=== PATIENT | male | born 1955 | race Caucasian/White ===

== ENCOUNTER 2019-01-06 02:29 | Emergency (ER) | payer BC ==
[2019-01-06] MEDS ORDERED: Clopidogrel 75 MG Tab PO ONE (02:49)
[2019-01-06] MEDS ORDERED: Aspirin 81 MG Tab.Chew PO ONE (02:49)
[2019-01-06] MEDS ORDERED: Heparin Sodium 5,000 UNITS/0.5 ML Syringe IVPUSH ONE (02:50)
[2019-01-06] MEDS: Sodium Chloride 0.9% 1,000 ML IV ONE ×2 (02:54→03:27)
[2019-01-06] MEDS ORDERED: Tenecteplase 50 MG Kit IV SCH (03:00)
--- NOTE | 2019-01-06 03:17 | EDM.PDOC ---
ED HPI GENERAL MEDICAL PROBLEM - General Chief Complaint: Chest Pain Stated Complaint: chest pain Time Seen by Provider: 01/06/19 02:45 Source of Information: Reports: Patient, EMS, EMS Notes Reviewed History Limitations: Reports: No Limitations - History of Present Illness INITIAL COMMENTS - FREE TEXT/NARRATIVE: This is a 63yo M brought in by EMS with chest pain, diaphoresis and shortness of breath. Patient states he last ate at 9pm but threw up and had diarrhea at midnight and then started having diaphoresis, chest pain and shortness of breath around 1 am. The pain continued at 5/10 with pressure. EMS sent his EKG showing ST elevation of leads V2-5. Patient did receive 2 nitro in the Rig and 4 aspirins prior to arrival. His BP did lower and was started on fluids. He has continued pain when arriving to the ER at 5/10. He is 95% oxygen Room air and then placed on 2L. Onset: Sudden Duration: Hour(s):, Constant, Heavy Location: Reports: Chest Quality: Reports: Ache, Throbbing Severity: Moderate Improves with: Reports: None Worsens with: Reports: None Associated Symptoms: Reports: Chest Pain, Diaphoresis, Loss of Appetite, Nausea/ Vomiting, Shortness of Breath Treatments [employer]: Reports: Aspirin, Nitroglycerin - Related Data Allergies Allergy/AdvReac Type Severity Reaction Status Date / Time No Known Allergies Allergy Verified 01/06/19 02:48 ED ROS GENERAL - Review of Systems Review Of Systems: ROS reveals no pertinent complaints other than HPI. 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) Ears: Normal External Exam Nose: Normal Inspection Throat/Mouth: Normal Inspection Head: Atraumatic, Normocephalic Neck: Normal Inspection, Supple, Non-Tender Respiratory/Chest: Lungs Clear, Normal Breath Sounds Cardiovascular: Normal Peripheral Pulses, Regular Rate, Rhythm, No Edema, No Gallop Peripheral Pulses: 2+: Dorsalis Pedis (L), Dorsalis Pedis (R) GI/Abdominal: Normal Bowel Sounds, Soft, Non-Tender Back Exam: Normal Inspection Extremities: Normal Inspection Neurological: Alert, Oriented, CN II-XII Intact Psychiatric: Normal Affect, Normal Mood Skin Exam: Warm, Dry, Intact Course - Orders/Labs/Meds Orders: Active Orders 24 hr Category Date Time Status EKG Documentation Completion [RC] ASDIRECTED Care 01/06/19 02:40 Ordered B-TYPE NATRIURETIC PEPTIDE,BNP [CHEM] Stat Lab 01/06/19 02:39 Ordered CBC WITH AUTO DIFF [HEME] Stat Lab 01/06/19 02:39 Ordered COMPREHENSIVE METABOLIC PN,CMP [CHEM] Stat Lab 01/06/19 02:39 Ordered TROPONIN I [CHEM] Stat Lab 01/06/19 02:39 Ordered Tenecteplase [Tnkase] Med 01/06/19 03:00 Ordered See Protocol IV ASDIRECTED EKG 12 Lead [EK] Routine Ther 01/06/19 02:39 Ordered Medication Orders Tenecteplase (Tnkase) 0 mg IV ASDIRECTED ELIEL; Protocol Meds: Medications Generic Name Dose Route Start Last Admin Trade Name Freq PRN Reason Stop Dose Admin Tenecteplase 0 mg 01/06/19 03:00 Tnkase IV ASDIRECTED ELIEL Protocol Discontinued Medications Generic Name Dose Route Start Last Admin Trade Name Freq PRN Reason Stop Dose Admin Aspirin 324 mg 01/06/19 02:49 01/06/19 02:52 Aspirin PO 01/06/19 02:50 324 mg ONETIME ONE Administration Clopidogrel Bisulfate 600 mg 01/06/19 02:49 01/06/19 02:52 Plavix PO 01/06/19 02:50 600 mg ONETIME ONE Administration Heparin Sodium (Porcine) 4,000 units 01/06/19 02:50 01/06/19 02:52 Heparin Sodium IVPUSH 01/06/19 02:51 4,000 units ONETIME ONE Administration Morphine Sulfate 2 mg 01/06/19 03:19 Morphine IVPUSH 01/06/19 03:20 ONETIME ONE Simvastatin 80 mg 01/06/19 02:52 Zocor PO 01/06/19 02:53 BEDTIME ONE Departure - Departure Time of Disposition: 03:30 Disposition: DC/Tfer to Acute Hospital 02 Reason for Transfer *Q: Primary PCI Indicated Condition: Undetermined Clinical Impression: STEMI (ST elevation myocardial infarction) Qualifiers: Involved coronary artery: other anterior wall coronary artery Qualified Code(s) : I21.09 - ST elevation (STEMI) myocardial infarction involving other coronary artery of anterior wall Forms: ED Department Discharge - Problem List Review Problem List Initiated/Reviewed/Updated: Yes - My Orders Last 24 Hours: My Active Orders 01/06/19 02:39 B-TYPE NATRIURETIC PEPTIDE,BNP [CHEM] Stat CBC WITH AUTO DIFF [HEME] Stat COMPREHENSIVE METABOLIC PN,CMP [CHEM] Stat TROPONIN I [CHEM] Stat EKG 12 Lead [EK] Routine 01/06/19 02:40 EKG Documentation Completion [RC] ASDIRECTED 01/06/19 03:00 Tenecteplase [Tnkase] See Protocol IV ASDIRECTED - Assessment/Plan Last 24 Hours: My Active Orders 01/06/19 02:39 B-TYPE NATRIURETIC PEPTIDE,BNP [CHEM] Stat CBC WITH AUTO DIFF [HEME] Stat COMPREHENSIVE METABOLIC PN,CMP [CHEM] Stat TROPONIN I [CHEM] Stat EKG 12 Lead [EK] Routine 01/06/19 02:40 EKG Documentation Completion [RC] ASDIRECTED 01/06/19 03:00 Tenecteplase [Tnkase] See Protocol IV ASDIRECTED Plan: Consulted STEMI team at [place]. Patient to be transferred under care of Dr. Lee. Patient stable at this time with improved BP but slightly worse chest pain. Morphine 2mg was given but it did not improve his chest pain. Transferred to [facility].
[2019-01-06] MEDS ORDERED: Morphine 2 MG/ML Syringe IVPUSH ONE (03:19)
== END 2019-01-06 03:33 ==
LOC: LB.ED 02:29
DX: I21.09 ST elevation (STEMI) myocardial infarction involving other coronary artery of anterior wall (principal)
CPT/HCPCS: 36415; 80053; 83880; 84484; 85025; 93005; 96361; 96374; 96375; 99285-25; A9270-GY; J1644-GY; J2270; J3101; J7030

== ENCOUNTER 2019-12-30 13:31 | Emergency (ER) | payer BC ==
--- NOTE | 2019-12-30 14:31 | EDM.PDOC ---
ED HPI GENERAL MEDICAL PROBLEM - General Chief Complaint: Lower Extremity Injury/Pain Stated Complaint: GOUT? Time Seen by Provider: 12/30/19 14:00 Source of Information: Reports: Patient History Limitations: Reports: No Limitations - History of Present Illness INITIAL COMMENTS - FREE TEXT/NARRATIVE: This patient presents to the ED for evaluation of toe pain. The pain started a couple of days ago and got much worse today. He has not been comfortable enough to walk much today. He does have a history of gout and has had several episodes in the past but none "for a while." He states that indomethacin has worked well for him in the past. He denies other symptoms with this including headache, chest pain, or difficulty breathing. He denies any recent illnesses including fever, cough, shortness or breath or sore throat. Onset: Gradual Onset Date: 12/28/19 Duration: Getting Worse Location: Reports: Lower Extremity, Right Quality: Reports: Ache, Throbbing Severity: Moderate Improves with: Reports: Immobilization Worsens with: Reports: Movement Associated Symptoms: Denies: Chest Pain, Cough, Diaphoresis, Fever/Chills, Headaches, Nausea/Vomiting, Shortness of Breath, Syncope, Weakness Right Foot Pain Score (Numeric/FACES): 5 - Related Data Allergies Allergy/AdvReac Type Severity Reaction Status Date / Time No Known Allergies Allergy Verified 01/06/19 02:48 ED ROS GENERAL - Review of Systems Review Of Systems: Comprehensive ROS is negative, except as noted in HPI. ED EXAM, GENERAL - Physical Exam Exam: See Below Exam Limited By: No Limitations General Appearance: No Apparent Distress Eye Exam: Bilateral Eye: PERRL Ears: Normal External Exam, Hearing Grossly Normal Nose: Normal Inspection Throat/Mouth: Normal Inspection, Normal Oropharynx Head: Atraumatic, Normocephalic Neck: Normal Inspection, Full Range of Motion Respiratory/Chest: No Respiratory Distress, No Accessory Muscle Use Extremities: Normal Inspection, Normal Capillary Refill, Other (right first toe erythematous and swollen; significant tenderness with palpation particularly over the IP joint. Distal CMS intact.) Neurological: Alert, Oriented Psychiatric: Normal Affect Skin Exam: Warm, Dry, Intact Course - Vital Signs Last Recorded V/S: Last Vital Signs Temp 37.3 C 12/30/19 14:10 Pulse 84 12/30/19 14:10 Resp 16 12/30/19 14:10 BP 118/74 12/30/19 14:10 Pulse Ox 96 12/30/19 14:10 - Re-Assessments/Exams Free Text/Narrative Re-Assessment/Exam: 12/30/19 14:33 This patient presents to the ED for evaluation of pain in their foot. The differential diagnosis included fracture, sprain, strain, contusion, septic arthritis, etc.. The patient is not diabetic and there was no obvious trauma or injury to the foot to indicate acute imaging at this time. The patient's history and clinical exam at this time are most consistent with gout. There is no sign of infection nor do I believe that diagnostic arthrocentesis is necessary at this time. Rather, I will begin conservative management with indomethacin. The patient was advised to rest and use ice. They may return to activities as tolerated, and I have advised follow up with their primary care provider in the next week if not improving. At this time I feel the patient is suitable for outpatient management, and will return for any new or worsening symptoms. Discharged to home in stable condition. Departure - Departure Time of Disposition: 14:20 Disposition: Home, Self-Care 01 Condition: Good Clinical Impression: Gout - Discharge Information Instructions: Calcium Pyrophosphate Deposition Referrals: PCP,None [Primary Care Provider] - Forms: ED Department Discharge Care Plan Goals: Keep appointment as scheduled in clinic on Sunday. Return to ER for any worsening symptoms Sepsis Event Note - Evaluation Sepsis Screening Result: No Definite Risk - Focused Exam Vital Signs: Vital Signs Temp Pulse Resp BP Pulse Ox 12/30/19 14:10 37.3 C 84 16 118/74 96 Date Exam was Performed: 12/30/19 Time Exam was Performed: 14:26
== END 2019-12-30 14:27 | disposition home or self-care (01) ==
LOC: LB.ED 13:31
DX: M10.9 Gout, unspecified (principal)
CPT/HCPCS: 99283